=== PATIENT | male | born 1970 | race Caucasian/White ===

== ENCOUNTER 2017-09-12 16:28 | Inpatient (IN) | payer OTHER ==
[~2017-09-12] VITALS: Ht 167.6 cm; Wt 71.0 kg
[2017-09-12 16:36] VITALS: BP 129/73; PULSE 62; RESP 18; TEMP 98.6; O2SAT 100
[2017-09-12 16:39] VITALS: BP 129/73; PULSE 62; RESP 18; TEMP 98.6; O2SAT 100
[2017-09-12] MEDS ORDERED: MORPHINE SULFATE 4 MG/ML INJ IV PUSH ONE ×2 (16:45→20:45)
[2017-09-12] MEDS ORDERED: SODIUM CHLOR 0.9% 1000 ML INJ 1,000 ML IV ONE (16:45)
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
[2017-09-12 18:49] LABS: AUTOMATED NEUTROPHIL # 8.7 TH/MM3 (1.8-7.7); BASOPHIL % 0.2 % (0.0-2.0); EOSINOPHIL # 0.1 TH/MM3 (0-0.4); EOSINOPHIL % 1.1 % (0.0-4.0); HEMATOCRIT 38.9 % (39.0-51.0); HEMOGLOBIN 13.2 GM/DL (13.0-17.0); LYMPH % 10.5 % (9.0-44.0); LYMPHOCYTE # 1.1 TH/MM3 (1.0-4.8); MEAN CELL VOLUME 92.4 FL (80.0-100.0); MEAN CORPUSCULAR HEMOGLOBIN 31.3 PG (27.0-34.0); MEAN CORPUSCULAR HGB CONC 33.9 % (32.0-36.0); MEAN PLATELET VOLUME 10.5 FL (7.0-11.0); MONO % 7.6 % (0.0-8.0); MONOCYTE # 0.8 TH/MM3 (0-0.9); NEUT % 80.6 % (16.0-70.0); PLATELET COUNT 118 TH/MM3 (150-450); RED BLOOD COUNT 4.21 MIL/MM3 (4.50-5.90); RED CELL DISTRIBUTION WIDTH 13.2 % (11.6-17.2); WHITE BLOOD COUNT 10.8 TH/MM3 (4.0-11.0)
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
[2017-09-12 19:07] LABS: INTERNATIONAL NORMALIZED RATIO 1.1 RATIO; PROTHROMBIN TIME - PATIENT 11.1 SEC (9.8-11.6)
[2017-09-12 19:11] LABS: BILIRUBIN, URINE NEG (NEG); BLOOD, URINE NEG (NEG); GLUCOSE,URINE NEG (NEG); KETONE, URINE 20 mg/dL (NEG); MUCUS URINE FEW /lpf (OCC); NITRITE,URINE NEG (NEG); URINE COLOR YELLOW (YELLW/STRAW); URINE LEUKOCYTE ESTERASE NEG (NEG)
[2017-09-12 19:12] LABS: BICARBONATE 24.2 MEQ/L (21.0-32.0); CALCIUM 8.3 MG/DL (8.5-10.1); CREATININE 1.01 MG/DL (0.60-1.30)
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
[2017-09-12] MEDS ORDERED: HYDROmorphone HCL PF 1 MG/ML VIAL IV PUSH ONE (20:15)
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
[2017-09-12] MEDS ORDERED: Post-op Orders (for Pharmacy) XX ONE (20:45)
[2017-09-12] MEDS ORDERED: SODIUM CHLORIDE 0.9% FLUSH 10 ML FLUSH IV FLUSH PRN (20:45)
[2017-09-12] MEDS ORDERED: NALOXONE HCL 0.4 MG/ML AMP IV PUSH PRN (20:45)
[2017-09-12 20:50] VITALS: BP 128/61; PULSE 68; RESP 16; O2SAT 100
[2017-09-12] MEDS ORDERED: MORPHINE SULFATE 4 MG/ML INJ IV PUSH PRN (21:00)
[2017-09-12] MEDS ORDERED: ONDANSETRON ODT 4 MG TAB PO PRN (21:00)
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
[2017-09-12] MEDS: SODIUM CHLORIDE 0.9% FLUSH 10 ML FLUSH IV FLUSH SCH (22:25)
[2017-09-12] MEDS: SODIUM CHLOR 0.9% 1000 ML INJ 1,000 ML IV SCH (22:25)
[2017-09-12] MEDS: FAMOTIDINE 20 MG TAB PO SCH (22:26)
[2017-09-12 23:36] VITALS: BP 104/63; PULSE 65; RESP 17; TEMP 98.1; O2SAT 100
[2017-09-13] MEDS: oxyCODONE/ACETAMINOPHEN 5 MG/325 MG TAB PO PRN ×3 (00:42→19:39)
[2017-09-13 04:15] VITALS: BP 91/56; PULSE 58; RESP 16; TEMP 97.9; O2SAT 98
[2017-09-13 05:33] LABS: AUTOMATED NEUTROPHIL # 4.2 TH/MM3 (1.8-7.7); BASOPHIL % 0.6 % (0.0-2.0); EOSINOPHIL # 0.2 TH/MM3 (0-0.4); EOSINOPHIL % 3.5 % (0.0-4.0); HEMATOCRIT 32.3 % (39.0-51.0); HEMOGLOBIN 11.1 GM/DL (13.0-17.0); LYMPH % 22.2 % (9.0-44.0); LYMPHOCYTE # 1.5 TH/MM3 (1.0-4.8); MEAN CELL VOLUME 90.8 FL (80.0-100.0); MEAN CORPUSCULAR HEMOGLOBIN 31.1 PG (27.0-34.0); MEAN CORPUSCULAR HGB CONC 34.3 % (32.0-36.0); MEAN PLATELET VOLUME 10.2 FL (7.0-11.0); MONO % 10.2 % (0.0-8.0); MONOCYTE # 0.7 TH/MM3 (0-0.9); NEUT % 63.5 % (16.0-70.0); PLATELET COUNT 109 TH/MM3 (150-450); RED BLOOD COUNT 3.56 MIL/MM3 (4.50-5.90); WHITE BLOOD COUNT 6.7 TH/MM3 (4.0-11.0)
[2017-09-13 05:56] LABS: BICARBONATE 24.8 MEQ/L (21.0-32.0); CALCIUM 7.9 MG/DL (8.5-10.1); CREATININE 1.02 MG/DL (0.60-1.30)
[2017-09-13] MEDS: SODIUM CHLOR 0.9% 1000 ML INJ 1,000 ML IV SCH ×2 (07:00→17:00)
[2017-09-13 08:00] VITALS: BP 104/60; PULSE 59; RESP 16; TEMP 97.8; O2SAT 100
[2017-09-13] MEDS: MAGNESIUM HYDROXIDE SUSP 30 ML CUP PO SCH ×2 (09:00→21:00)
[2017-09-13] MEDS: ENOXAPARIN SODIUM 40 MG/0.4 ML SYRINGE SQ SCH (09:00)
[2017-09-13] MEDS: SODIUM CHLORIDE 0.9% FLUSH 10 ML FLUSH IV FLUSH SCH ×2 (09:00→21:00)
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
[2017-09-13] MEDS: DOCUSATE SODIUM 50 MG/SENNA 8.6 MG TAB PO SCH ×2 (10:36→21:00)
[2017-09-13] MEDS: FAMOTIDINE 20 MG TAB PO SCH ×2 (10:36→21:00)
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
[2017-09-13 12:00] VITALS: BP_SYST 104; BP_SYST 122; BP_DIAS 60; BP_DIAS 69; PULSE 59; PULSE 72; RESP 16; TEMP 97.8; TEMP 98.4; O2SAT 100; O2SAT 98
[2017-09-13] MEDS ORDERED: PERI PO (13:13)
[2017-09-13] MEDS ORDERED: MAGN30S PO (13:13)
[2017-09-13] MEDS: CYCLOBENZAPRINE HCL 10 MG TAB PO SCH ×2 (13:21→21:55)
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
--- NOTE | 2017-09-13 16:46 | EKG ---
Date Performed: 09/12/2017 Time Performed: 23:03:01 PTAGE: 47 years EKG: SINUS BRADYCARDIA BORDERLINE ECG NO PREVIOUS TRACING DOCTOR: Parish Glynn Interpretating Date/Time 09/13/2017 16:44:05
[2017-09-13 17:22] VITALS: BP 117/66; PULSE 70; RESP 18; TEMP 98.9; O2SAT 99
[2017-09-13 20:36] VITALS: BP 111/65; PULSE 61; RESP 16; TEMP 98.6; O2SAT 97
[2017-09-13 23:41] VITALS: BP 110/63; PULSE 51; RESP 16; TEMP 98.5; O2SAT 99
[2017-09-14] MEDS: SODIUM CHLOR 0.9% 1000 ML INJ 1,000 ML IV SCH ×2 (02:07→13:00)
[2017-09-14 03:35] VITALS: BP 131/65; PULSE 51; RESP 17; TEMP 98.2; O2SAT 99
[2017-09-14 05:07] LABS: AUTOMATED NEUTROPHIL # 4.1 TH/MM3 (1.8-7.7); BASOPHIL % 0.5 % (0.0-2.0); EOSINOPHIL # 0.2 TH/MM3 (0-0.4); EOSINOPHIL % 3.1 % (0.0-4.0); HEMOGLOBIN 11.3 GM/DL (13.0-17.0); LYMPH % 25.4 % (9.0-44.0); LYMPHOCYTE # 1.7 TH/MM3 (1.0-4.8); MEAN CORPUSCULAR HGB CONC 34.1 % (32.0-36.0); MEAN PLATELET VOLUME 9.6 FL (7.0-11.0); MONO % 10.3 % (0.0-8.0); MONOCYTE # 0.7 TH/MM3 (0-0.9); NEUT % 60.7 % (16.0-70.0); PLATELET COUNT 106 TH/MM3 (150-450); RED BLOOD COUNT 3.63 MIL/MM3 (4.50-5.90); WHITE BLOOD COUNT 6.7 TH/MM3 (4.0-11.0)
[2017-09-14 05:24] LABS: BICARBONATE 26.3 MEQ/L (21.0-32.0); CALCIUM 7.9 MG/DL (8.5-10.1); CREATININE 0.79 MG/DL (0.60-1.30)
[2017-09-14] MEDS: CYCLOBENZAPRINE HCL 10 MG TAB PO SCH ×2 (05:51→12:44)
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
[2017-09-14 07:39] VITALS: BP 117/65; PULSE 56; RESP 18; TEMP 98.3; O2SAT 99
[2017-09-14] MEDS: SODIUM CHLORIDE 0.9% FLUSH 10 ML FLUSH IV FLUSH SCH (09:00)
[2017-09-14] MEDS: MAGNESIUM HYDROXIDE SUSP 30 ML CUP PO SCH (09:00)
[2017-09-14] MEDS: ENOXAPARIN SODIUM 40 MG/0.4 ML SYRINGE SQ SCH (09:00)
[2017-09-14] MEDS ORDERED: WHEEMIS3 (10:48)
[2017-09-14] MEDS ORDERED: OXYC1TAB63 PO (11:09)
[2017-09-14] MEDS ORDERED: CYCL10TA PO (11:09)
[2017-09-14] MEDS: FAMOTIDINE 20 MG TAB PO SCH (11:20)
[2017-09-14] MEDS: DOCUSATE SODIUM 50 MG/SENNA 8.6 MG TAB PO SCH (11:20)
[2017-09-14] MEDS: oxyCODONE/ACETAMINOPHEN 5 MG/325 MG TAB PO PRN (11:20)
[2017-09-14 12:03] VITALS: BP 130/66; PULSE 63; RESP 18; TEMP 98; O2SAT 100
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
[2017-09-14 16:16] VITALS: BP 115/68; PULSE 54; RESP 18; TEMP 98.6; O2SAT 99
== END 2017-09-14 18:16 | disposition home or self-care (01) | DRG 964 ==
LOC: NEPC 16:28 → NEDA 20:18 → NEPFCDU 23:17
PROVIDERS: ADMIT Surgery; ATTEND Surgery
DX: S32.512A Fracture of superior rim of left pubis, initial encounter for closed fracture (principal); S27.1XXA Traumatic hemothorax, initial encounter; S22.21XA Fracture of manubrium, initial encounter for closed fracture; S42.002A Fracture of unspecified part of left clavicle, initial encounter for closed fracture; S22.31XD Fracture of one rib, right side, subsequent encounter for fracture with routine healing; S42.001A Fracture of unspecified part of right clavicle, initial encounter for closed fracture; M62.838 Other muscle spasm; V86.56XA Driver of dirt bike or motor/cross bike injured in nontraffic accident, initial encounter
CPT/HCPCS: 70450; 71045; 71046; 71250; 72125; 72192; 80048; 81001; 85025; 85610; 85730; 93005; 93306; 94150; 96361; 96374; J2270; J7030